=== PATIENT | male | born 1945 | race Caucasian/White ===

== ENCOUNTER 2018-09-06 17:55 | Emergency (ER) | payer MEDICARE ==
[~2018-09-06 17:55] MED LIST: ACET-66 PO; Aspirin PO; CELE200 PO; CETI1TAB PO; FERS325 PO; FLUTICASONE PROPI NASAL; HYDR-2132 PO; MVI PO; SIMV40TA59 PO; SITA1TAB6 PO
[2018-09-06 18:20] LABS: EOSINOPHILS % (AUTO) 7.6 % (0.0-8.0); HEMATOCRIT 42.1 % (42-54); LYMPHOCYTES % (AUTO) 33.4 % (21.0-51.0); MEAN CORPUSCULAR HEMOGLOBIN 31.9 pg (27.0-33.0); MEAN CORPUSCULAR HGB CONC 33.8 g/dL (32.0-36.0); MEAN CORPUSCULAR VOLUME 94.5 fL (79-99); MONOCYTES % (AUTO) 11.5 % (3.0-13.0); NEUTROPHILS % (AUTO) 46.5 % (40.0-77.0); PLATELET COUNT (AUTO) 241 K/uL (130-400); RED BLOOD CELL COUNT(AUTO) 4.46 MIL/uL (4.50-6.20); RED CELL DISTRIBUTION WIDTH 13.3 % (11.0-15.5)
[2018-09-06 18:35] LABS: CREATININE 0.8 mg/dL (0.5-1.5); POTASSIUM 3.8 mmol/L (3.5-5.1)
[2018-09-06 18:39] LABS: INR 0.95 (0.85-1.15); PARTIAL THROMBOPLASTIN TIME 27.7 SEC (26.3-35.5)
[2018-09-06 18:40] LABS: ALBUMIN 4.2 g/dL (3.5-5.0); BILIRUBIN,TOTAL 1.6 mg/dL (0.2-1.0); TOTAL PROTEIN, SERUM 7.8 g/dL (6.0-8.3)
[2018-09-06 19:42] LABS: APPEARANCE,URINE Clear (CLEAR); BILIRUBIN,URINE Negative (NEGATIVE); COLOR,URINE Yellow (YELLOW); GLUCOSE, URINE (UA) Negative (NEGATIVE); KETONES,URINE Negative (NEGATIVE); LEUKOCYTE ESTERASE ,URINE Negative (NEGATIVE); NITRATE,URINE Negative (NEGATIVE); OCCULT BLOOD,URINE Negative (NEGATIVE); PH,URINE 5.5 (5.0-8.0); PROTEIN,URINE Negative (NEGATIVE)
[2018-09-06] MEDS ORDERED: MAGNESIUM OXIDE 400 MG TABLET PO ONE (20:32)
== END 2018-09-06 20:54 | disposition home or self-care (01) ==
LOC: EDH 17:55
DX: I10 Essential (primary) hypertension (principal); E83.42 Hypomagnesemia; E78.5 Hyperlipidemia, unspecified; E11.40 Type 2 diabetes mellitus with diabetic neuropathy, unspecified; Z98.890 Other specified postprocedural states; Z87.891 Personal history of nicotine dependence
CPT/HCPCS: 36415; 70450; 71045; 80053; 81003; 82550; 83735; 84484; 85025; 85610; 85730; 93005

== ENCOUNTER 2018-11-03 15:00 | Observation (INO) | payer MEDICARE ==
[~2018-11-03] VITALS: Ht 175.3 cm; Wt 131.8 kg
[~2018-11-03 15:00] MED LIST changes: -ACET-66 PO; -Aspirin PO; -CELE200 PO; -FLUTICASONE PROPI NASAL; -HYDR-2132 PO; -SIMV40TA59 PO
[2018-11-03 15:26] VITALS: BP 164/77
[2018-11-03] MEDS ORDERED: ATOR40TA69 PO (16:05)
[2018-11-03] MEDS ORDERED: MAGN250T2 PO (16:05)
[2018-11-03] MEDS ORDERED: GLIM1TAB2 PO (16:05)
[2018-11-03] MEDS ORDERED: AMLO5TAB9 PO (16:05)
[2018-11-03] MEDS ORDERED: [UNRECOGNIZED DRUG - CODE] PO (16:05)
[2018-11-03] MEDS ORDERED: GABA300S PO (16:05)
[2018-11-03] MEDS ORDERED: LISI40TA4 PO (16:05)
[2018-11-03] MEDS ORDERED: METF-446 PO (16:05)
[2018-11-03] MEDS: CEFAZOLIN SODIUM 1 GM VIAL IVP SCH (17:45)
[2018-11-04] VITALS (19 sets, daily range): BP systolic 100–139; BP diastolic 49–81
[2018-11-04] MEDS ORDERED: CEFAZOLIN SODIUM 1 GM VIAL ONE (07:15)
[2018-11-04] MEDS ORDERED: SODIUM CHLORIDE 0.9% 1000ML 1,000 ML IV ONE (07:24)
[2018-11-04] MEDS ORDERED: AEC81 PO (08:05)
[2018-11-04] MEDS ORDERED: MIDAZOLAM HCL 1 MG/ML 5ML VIAL ONE (08:16)
[2018-11-04] MEDS ORDERED: LIDOCAINE PF 2% 5ML ABBOJECT ONE (08:30)
[2018-11-04] MEDS ORDERED: PROPOFOL 10 MG/ML 20ML VIAL IV ONE (08:30)
[2018-11-04] MEDS ORDERED: ROCURONIUM 10MG/1ML SYR 10 MG/ML ML ONE (08:30)
[2018-11-04] MEDS ORDERED: ROPIVACAINE 0.5% 5MG/ML 30ML IJ ONE (08:31)
[2018-11-04] MEDS ORDERED: FENTANYL CITRATE PF 50 MCG/1 ML 2ML VIAL ONE ×4 (08:31→11:11)
[2018-11-04] MEDS ORDERED: ONDANSETRON HCL 4 MG/2 ML VIAL ONE (08:56)
[2018-11-04] MEDS ORDERED: DEXAMETHASONE SOD PHOSPHATE 10MG/ML 1ML VIAL ONE (08:56)
[2018-11-04] MEDS: CEFAZOLIN SODIUM 1 GM VIAL IVP SCH (09:00)
[2018-11-04] MEDS ORDERED: CALCIUM CARBONATE 500 MG TABLET PO PRN (10:15)
[2018-11-04] MEDS ORDERED: ONDANSETRON HCL 4 MG/2 ML VIAL IVP PRN (10:15)
[2018-11-04] MEDS ORDERED: POTASSIUM CHLORIDE 20MEQ/100ML 100 ML IV PRN (10:15)
[2018-11-04] MEDS ORDERED: POTASSIUM CHLORIDE 20 MEQ ERTAB PO PRN (10:15)
[2018-11-04] MEDS ORDERED: DiphenhydrAMINE HCL 50 MG/ML VIAL IVP PRN (10:15)
[2018-11-04] MEDS: ACETAMINOPHEN EXTRA STRENGTH 500 MG TABLET PO SCH ×2 (10:15→18:14)
[2018-11-04] MEDS ORDERED: TRAMADOL HCL 50 MG TABLET PO PRN (10:15)
[2018-11-04] MEDS ORDERED: FERROUS FUMARATE 324 MG TABLET PO PRN (10:15)
[2018-11-04] MEDS ORDERED: LIDOCAINE HCL-MPF 1% 2ML VIAL IVP PRN (10:15)
[2018-11-04] MEDS ORDERED: KETOROLAC TROMETHAMINE 15MG/ML IV PRN (10:15)
[2018-11-04] MEDS ORDERED: POTASSIUM CHLORIDE 10% ELIXIR 20 MEQ/15 ML UDCUP PO PRN (10:15)
[2018-11-04] MEDS ORDERED: TEMAZEPAM 15 MG CAPSULE PO PRN (10:15)
[2018-11-04] MEDS ORDERED: OXYCODONE HCL 5 MG TAB PO PRN ×2 (10:15)
[2018-11-04] MEDS ORDERED: MEPERIDINE-PF 25 MG/ML SYG ONE ×2 (11:03→11:08)
[2018-11-04] MEDS: INSULIN HUMULIN R 100 UNIT/ML 3ML SQ SCH ×2 (11:30→20:37)
--- NOTE | 2018-11-04 12:01 | NUR ---
POST SURGERY RECEIVED FROM PACU IN STABLE CONDITION. ORIENTED TO ROOM AND USE OF CALL LIGHT. DRESSING TO THE RIGHT KNEE IS DRY AND INTACT. POST OP V/S HAVE BEEN INITIATED. BED IS IN LOWEST POSITION AND LOCKED WITH PERSONAL BELONGINGS WITHIN REACH. WILL CONTINUE TO MONITOR.
[2018-11-04] MEDS: SODIUM CHLORIDE 0.9% 1000ML 1,000 ML IV SCH ×2 (12:20→20:41)
--- NOTE | 2018-11-04 12:20 | NUR ---
DCP CM met with pt discussed dc plans. Pt is independent prior to surgery, lives at home with spouse. Pt has a walker, 3 in 1 chair, shower chair at home from previous surgery. Denies any other equipments/services. Pt feels safe to go back home, still works and drives, spouse able to assist with transportation and needs. DC plan to home once stable. CM to cont to follow up. Addendum: 11/04/18 at 1223 by WES SAMANIEGO LVN CM Amended: Links added.
[2018-11-04] MEDS: CEFAZOLIN 3GM /D5W 100ML 100 ML IV SCH (16:15)
[2018-11-04] MEDS: FAMOTIDINE 20MG TAB 20 MG TAB PO SCH (20:32)
[2018-11-04] MEDS: ASPIRIN 325 MG TABLET PO SCH (20:32)
[2018-11-04] MEDS: PREGABALIN 25 MG CAP PO SCH (20:32)
[2018-11-04] MEDS: CELECOXIB 200 MG CAP PO SCH (20:33)
[2018-11-04] MEDS ORDERED: NON-FORMULARY MEDICATION 1 EACH (Gabapentin 300 MG) PO SCH (21:00)
[2018-11-04] MEDS ORDERED: AMLODIPINE BESYLATE 5 MG TAB PO SCH (21:00)
[2018-11-05] MEDS: CEFAZOLIN 3GM /D5W 100ML 100 ML IV SCH (00:58)
[2018-11-05] MEDS: ACETAMINOPHEN EXTRA STRENGTH 500 MG TABLET PO SCH ×2 (01:01→10:20)
[2018-11-05] MEDS: SODIUM CHLORIDE 0.9% 1000ML 1,000 ML IV SCH (02:03)
[2018-11-05 04:00] VITALS: BP 135/68
[2018-11-05 05:42] LABS: HEMATOCRIT 41.5 % (42-54); MEAN CORPUSCULAR HEMOGLOBIN 32.4 pg (27.0-33.0); MEAN CORPUSCULAR HGB CONC 33.7 g/dL (32.0-36.0); MEAN CORPUSCULAR VOLUME 96.1 fL (79-99); PLATELET COUNT (AUTO) 235 K/uL (130-400); RED BLOOD CELL COUNT(AUTO) 4.32 MIL/uL (4.50-6.20); RED CELL DISTRIBUTION WIDTH 13.6 % (11.0-15.5); WHITE BLOOD COUNT (AUTO) 10.1 K/uL (4.8-10.8)
[2018-11-05 05:50] LABS: CREATININE 0.9 mg/dL (0.5-1.5); POTASSIUM 3.8 mmol/L (3.5-5.1)
[2018-11-05] MEDS: INSULIN HUMULIN R 100 UNIT/ML 3ML SQ SCH ×2 (06:00→11:40)
[2018-11-05 07:56] VITALS: BP 136/68
[2018-11-05] MEDS: ASPIRIN 325 MG TABLET PO SCH (08:43)
[2018-11-05] MEDS: PREGABALIN 25 MG CAP PO SCH (08:43)
[2018-11-05] MEDS: CELECOXIB 200 MG CAP PO SCH (08:45)
[2018-11-05] MEDS: FAMOTIDINE 20MG TAB 20 MG TAB PO SCH (08:45)
[2018-11-05] MEDS ORDERED: MAGNESIUM 250 MG PO SCH (09:00)
[2018-11-05] MEDS ORDERED: TAMSULOSIN HCL 0.4 MG CAP.ER.24H PO SCH (09:00)
[2018-11-05] MEDS ORDERED: METFORMIN HCL 500 MG TABLET PO SCH (09:00)
[2018-11-05] MEDS ORDERED: NON-FORMULARY MEDICATION 1 EACH (Ferrous Sulfate 325 MG) PO SCH (09:00)
[2018-11-05] MEDS ORDERED: POLYETHYLENE GLYCOL 3350 17 GM POWD.PACK PO SCH (09:00)
[2018-11-05] MEDS ORDERED: LISINOPRIL 40 MG TABLET PO SCH (09:00)
[2018-11-05] MEDS ORDERED: MULTIVITAMIN TABLET PO SCH (09:00)
[2018-11-05] MEDS ORDERED: ATORVASTATIN CALCIUM 40 MG TABLET PO SCH (09:00)
[2018-11-05] MEDS ORDERED: GLIMEPIRIDE 2 MG TABLET PO SCH (09:00)
[2018-11-05 11:18] VITALS: BP 139/75
[2018-11-05] MEDS ORDERED: ASPI-1012 PO (13:16)
[2018-11-05] MEDS ORDERED: HYDR-4457 PO (13:16)
--- NOTE | 2018-11-05 16:00 | NUR ---
INSTRUCTIONS DISCHARGE INSTRUCTIONS GIVEN TO PATIENT AND SPOUSE USING TEACH BACK. DRESSING CHANGE PER MD ORDERS. FAMILY PRESENT AND TAUGHT TO PERFORM DRESSING CHANGES AT HOME. NO QUESTIONS OR CONCERNS VOICED. IV REMOVED WITH TIP INTACT. DIRECT PRESSURE APPLIED UNTIL BLEEDING CONTROLLED THEN SITE COVERED WITH GAUZE AND SECURED WITH A BAND-AID.
[2018-11-07] MEDS ORDERED: BISACODYL 10 MG SUPP.RECT RC PRN (10:15)
== END 2018-11-05 16:30 | disposition home or self-care (01) ==
LOC: EDSTATUS 15:00 → DAHIP 11-04 06:25 → 4AH 11-04 11:51
PROVIDERS: ADMIT Orthopaedic Surgery; ATTEND Orthopaedic Surgery
DX: M22.2X1 Patellofemoral disorders, right knee (principal); M25.561 Pain in right knee; E11.9 Type 2 diabetes mellitus without complications; E78.00 Pure hypercholesterolemia, unspecified; Z82.49 Family history of ischemic heart disease and other diseases of the circulatory system; Z79.899 Other long term (current) drug therapy
CPT/HCPCS: 27334; 36415; 80048; 82948 ×5; 85027; 88305; 88311; 96365; 96366; 96372 ×2; 99284; A4600; A4649; A4930; G0168; G0378 ×28; J0690 ×2; J1100; J1815 ×2; J2001; J2175 ×2; J2250; J2405; J2704; J2795; J3010 ×4; J7030 ×2; 76882

== ENCOUNTER → 2018-12-04 | Outpatient (CLI) | payer MEDICARE ==
[~2018-12-04] MED LIST changes: +AMLO5TAB9 PO; +ASPI-1012 PO; +ATOR40TA69 PO; +GABA300S PO; +GLIM1TAB2 PO; +HYDR-4457 PO; +LISI40TA4 PO; +MAGN250T2 PO; +METF-446 PO; -SITA1TAB6 PO; +[UNRECOGNIZED DRUG - CODE] PO
== END | disposition home or self-care (01) ==
LOC: RAH 15:16
PROVIDERS: ATTEND Orthopaedic Surgery
DX: M25.462 Effusion, left knee (principal); R60.9 Edema, unspecified
CPT/HCPCS: 93971

== ENCOUNTER → 2020-06-22 | Outpatient (CLI) | payer MEDICARE ==
[~2020-06-22] MED LIST changes: +AMLO-257 PO; -AMLO5TAB9 PO; +GLIM1TAB18 PO; -GLIM1TAB2 PO
== END | disposition home or self-care (01) ==
LOC: RAH 12:40
PROVIDERS: ATTEND Family Medicine
DX: G90.523 Complex regional pain syndrome I of lower limb, bilateral (principal)
CPT/HCPCS: 93925

== ENCOUNTER → 2024-05-18 | Outpatient (CLI) | payer MEDICARE ==
[~2024-05-18] MED LIST changes: -GABA300S PO; +GABA300S3 PO; -GLIM1TAB18 PO; +GLIM1TAB56 PO; +IOHEXOL 350 MG/ML 100ML INFUS..BTL IV ONE; -LISI40TA4 PO; +LISI40TA9 PO; -MAGN250T2 PO; +MAGN250T35 PO
--- NOTE | 2024-05-18 08:59 | HMCIMG ---
CT ABDOMEN/PELVIS W/CONTRAST HISTORY: Other disorder of bilirubin metabolism COMPARISON: None TECHNIQUE: Multiple sequential axial images of the abdomen and pelvis were obtained from the dome of the diaphragm through symphysis pubis. Patient was given 100 cc of Omnipaque through intravenous route. Oral contrast was not given. FINDINGS: No pleural effusion is seen bilaterally. There is no evidence of parenchymal disease or pulmonary nodule of the visualized lower lungs. Degenerative changes of the thoracolumbar spine are present. The heart is not enlarged. 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 Gallstones versus sludge material are seen in the gallbladder. Mild bilateral renal cortical scarring is seen. The liver, spleen, adrenal glands and pancreas are unremarkable. There is no evidence of hydronephrosis bilaterally. No evidence of renal stone is seen. Fecal material is seen in the colon. There are normal size retroperitoneal and mesenteric lymph nodes. No ascites is seen. Atherosclerotic changes are present. No CT evidence of acute appendicitis is seen. Pelvic sidewalls are symmetric bilaterally. Bladder is poorly distended with apparent bladder wall thickening. IMPRESSION: 1. Gallstones and sludge material are seen in the gallbladder. CT was performed with one or more following dose reduction techniques: automated exposure control, adjustment of the mA and kv according to patient's size, or use of a iterative reconstruction technique.
== END | disposition home or self-care (01) ==
LOC: RAH 07:44
PROVIDERS: ATTEND Family Medicine
DX: K80.20 Calculus of gallbladder without cholecystitis without obstruction (principal); N32.89 Other specified disorders of bladder; M47.815 Spondylosis without myelopathy or radiculopathy, thoracolumbar region; E87.6 Hypokalemia; E80.6 Other disorders of bilirubin metabolism
CPT/HCPCS: 74177; Q9967